=== PATIENT | female | born 1985 | race Asian ===

== ENCOUNTER 2022-05-17 03:43 | Emergency (ER) | payer SELFPAY ==
[~2022-05-17] VITALS: Ht 170.2 cm; Wt 104.3 kg
[2022-05-17 04:00] VITALS: BP_SYST 132
--- NOTE | 2022-05-17 04:00 | NUR ---
Patient presents to ED from home with c/o left hand injury x1 day. Patient reports pain 3/10 at this time. Patient has visible swelling with (+) tenderness to touch on left hand. Patient presents with bizzare behavior at this time. Patient A/Ox3, VSS, ambulatory, resp even and unlabored. Nad noted at this time. ER MD Shetty made aware.
[2022-05-17 04:05] VITALS: BP_SYST 132
--- NOTE | 2022-05-17 04:15 | NUR ---
ER MD Shetty examining patient in triage room with RN present.
--- NOTE | 2022-05-17 05:15 | NUR ---
Xray in waiting room.
[2022-05-17 05:47] LABS: BARBITURATE, URINE NEGATIVE (NEG <=200); BENZODIAZEPINE, URINE NEGATIVE (NEG <=150); CANNABINOID, URINE NEGATIVE (NEG <=50); COCAINE, URINE NEGATIVE (NEG <=150); METHAMPHETAMINES SCREEN,URINE NEGATIVE (NEG <=500); OPIATE, URINE NEGATIVE (NEG <=100); PHENCYCLIDINE SCREEN,URINE NEGATIVE (NEG <=25); UR TRICYCLIC ANTIDEPRESSANTS NEGATIVE (NEG <=300); URINE AMPHETAMINE NEGATIVE (NEG <=500); URINE METHADONE NEGATIVE (NEG <=200); URINE OXYCODONE SCREEN NEGATIVE (NEG <=100); URINE PROPOXYPHENE SCREEN NEGATIVE (NEG <=300)
--- NOTE | 2022-05-17 06:05 | NUR ---
Patient eloped at this time.
== END 2022-05-17 06:05 | disposition left against medical advice (07) ==
LOC: SED 03:43
DX: S60.012A Contusion of left thumb without damage to nail, initial encounter (principal); F29 Unspecified psychosis not due to a substance or known physiological condition; Z79.899 Other long term (current) drug therapy; W54.1XXA Struck by dog, initial encounter; Y93.89 Activity, other specified; Y92.89 Other specified places as the place of occurrence of the external cause; Y99.8 Other external cause status
CPT/HCPCS: 80307; 81025; 99284